=== PATIENT | female | born 1975 | race Caucasian/White ===

== ENCOUNTER 2024-05-01 08:16 | Observation (INO) ==
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
[2024-05-01 09:07] LABS: Basophils # (auto) 0.03 K/uL (0.00-0.20); Basophils % (auto) 0.5 %; Eosinophils # (auto) 0.22 K/uL (0.00-0.50); Eosinophils % (auto) 3.4 %; Hematocrit (blood only) 44.5 % (37.0-47.0); Hemoglobin 14.8 g/dl (12.0-16.0); Immature Granulocytes # (auto) 0.03 K/uL (0.01-0.20); Immature Granulocytes % (auto) 0.5 %; Lymphocytes # (auto) 1.14 K/uL (1.20-3.40); Lymphocytes % (auto) 17.7 %; Mean Corpuscular Hgb Conc 33.3 g/dL (32.0-36.0); Mean Corpuscular Volume 90.3 fL (80.0-100.0); Mean Platelet Volume 11.4 fL (9.4-12.4); Monocytes # (auto) 0.61 K/uL (0.11-0.59); Monocytes % (auto) 9.5 %; Neutrophils # (auto) 4.41 K/uL (1.40-6.50); Neutrophils % (auto) 68.4 %; Platelet Count 221 K/uL (130-400); RDW Coefficient of Variation 12.3 % (11.5-14.5); RDW Standard Deviation 40.8 fL (36.4-46.3); Red Blood Count 4.93 M/uL (4.20-5.40); White Blood Count 6.44 K/ul (4.8-10.8)
[2024-05-01 09:24] LABS: Alanine Aminotransferase 18 U/L (7-52); Albumin Globulin Ratio 1.3 (0.9-2); Albumin Level 4.2 gm/dl (3.4-5.0); Alkaline Phosphatase 70 U/L (34-104); Anion Gap 7 (3-11); Aspartate Aminotransferase 21 U/L (13-39); BUN Creatinine Ratio 9.4 (10-20); Bilirubin,Total 0.5 mg/dl (0.2-1.0); Blood Urea Nitrogen 9 mg/dl (6-23); C Reactive Protein < 0.50 mg/dl (0-0.5); Calcium 9.1 mg/dl (8.6-10.3); Carbon Dioxide 27 mmol/L (21-32); Chloride 102 mmol/L (98-107); Globulin 3.2 gm/dl (2.5-4.0); Glucose 97 mg/dl (70-99(Fasting)); Potassium 4.1 mmol/L (3.5-5.1); Sodium 136 mmol/L (136-145); Total Protein 7.4 gm/dl (6.0-8.3)
[2024-05-01 09:33] LABS: INR 0.9 (0.9-1.1); Prothrombin Time 10.3 Seconds (9.0-12.0)
--- NOTE | 2024-05-01 09:34 | Ultrasound Report ---
US venous doppler LE RT CLINICAL HISTORY: R posterior calf swelling and redness TECHNIQUE: Right lower extremity real-time compression venous ultrasound with Color Doppler imaging. Utilizing real-time ultrasonic imaging multiple real time high-resolution ultrasonic images with comp ression and noncompression maneuvers of the deep venous system in addition to color doppler imaging w ere performed from the common femoral vein through the proximal calf veins. COMPARISON: None available at the time of this dictation. FINDINGS/IMPRESSION: No deep venous thrombus, there is normal compressibility of the deep venous system from the common fe moral vein through the proximal calf veins. No definite fluid collection is seen. ACT 112: Negative or not required by law. Electronically signed by: Guido Goodwin M.D. 05/01/2024 9:33 AM
[2024-05-01] MEDS: CEFEPIME 2000MG 2,000 MG/20 ML SYR IV STA (10:10)
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
[2024-05-01] MEDS: OPTIRAY 320 100ml IV ONE (11:10)
--- NOTE | 2024-05-01 11:31 | Electrocardiogram Report ---
Test Reason : Blood Pressure : */* mmHG Vent. Rate : 69 BPM Atrial Rate : 69 BPM P-R Int : 148 ms QRS Dur : 86 ms QT Int : 412 ms P-R-T Axes : 66 75 40 degrees QTcB Int : 441 ms Normal sinus rhythm Normal ECG Confirmed by Anthony Chun ([id number]) on 05/01/2024 11:31:19 AM Referred By: Jaleesa Saenz Confirmed By: Anthony Chun
--- NOTE | 2024-05-01 11:55 | CT Scan Report ---
CT knee RT w con HISTORY: 48 years-old Female Spider bite; post. knee; spreading erythema COMPARISON: Duplex venous Doppler study of same day. TECHNIQUE: Multiple axial CT images of the right knee were obtained with IV contrast. A dose lowering technique was used consistent with the principals of MIRNA. FINDINGS: Five mm ossification is noted posterior to the proximal tibial metaphysis on image 247 series 4, whic h appears benign. Mild tricompartmental osteoarthritis without acute fracture, dislocation or osseous erosion. Benign 4 mm bone island of the lateral proximal tibia. Subcortical cysts of the trochlear m easure up to 6 mm. Mild nonspecific anterior subcutaneous edema. No fluid collections or large joint effusion. No defini te Enriquez's cyst. Tendons,, ligaments and menisci are not well-evaluated by CT technique. Normal appea isidro of the popliteal artery. No lymphadenopathy. IMPRESSION: 1. No osseous abnormality. 2. Mild osteoarthritis is most pronounced within the patellofemoral joint. 3. Mild nonspecific anterior subcutaneous edema. No fluid collections. ACT 112: Negative or not required by law. The above report was generated using voice recognition software. It may contain grammatical, syntax o r spelling errors. Dictated: 05/01/2024 11:41 AM Transcribed: 05/01/2024 11:53 AM Phillip [id number] [email or web address] Electronically signed by: Rl Hussein M.D. 05/01/2024 11:54 AM
[2024-05-01] MEDS ORDERED: ACETAMINOPHEN 325 MG TAB PO PRN (13:42)
[2024-05-01] MEDS ORDERED: MELATONIN 3 MG TAB PO PRN (13:42)
[2024-05-01] MEDS ORDERED: POLYETHYLENE (MIRALAX) 17 GM PACK PO PRN (13:42)
[2024-05-01 14:11] LABS: Lyme Screen Rflx Confirmation Positive (Negative)
[2024-05-01 14:45] LABS: Lyme Ab IgG 2nd Tier Confirm Positive (Negative); Lyme Ab IgM 2nd Tier Confirm Positive (Negative)
[2024-05-01] MEDS: cefTRIAXone SODIUM 2,000 MG/50 ML BAG IV SCH (16:18)
[2024-05-01] MEDS: metroNIDAZOLE 500 MG TAB PO SCH (16:19)
[2024-05-01] MEDS: DOXYCYCLINE HYCLATE 100 MG CAP PO SCH (16:19)
[2024-05-01 19:03] VITALS: O2SAT 98
[2024-05-02 07:16] VITALS: BP 116/74; PULSE 65; RESP 18; TEMP 97.9
[2024-05-02] MEDS: ONDANSETRON INJ 2 MG/ML 2 ML VIAL IV PRN (08:27)
--- NOTE | 2024-05-02 11:34 | Ultrasound Report ---
ULTRASOUND LEFT LOWER EXTREMITY NONVASCULAR CLINICAL HISTORY: Right leg swelling. Assess for abscess. Reported history of spider bite. COMPARISON STUDY: CT scan of the right knee dated 05/01/2024. FINDINGS: Real-time noguera scale and color flow sonography of the soft tissues of the posterior proxima l right upper extremity is performed at the indicated site of interest. No fluid collection is seen t o suggest abscess. No mass lesion is identified. There is no abnormal hyperemia on color imaging. IMPRESSION: No acute abnormality is identified at the site of interest. Dictated: 05/02/2024 9:44 AM Transcribed: 05/02/2024 10:23 AM Phillip [id number] [email or web address] Electronically signed by: Tacho Dan M.D. 05/02/2024 11:33 AM
--- NOTE | 2024-05-03 08:14 | Discharge Summary ---
Discharge Summary Date of Service May 02, 2024 Principal Dx & Hospital Course #1 = Principal Diagnosis (1) Cellulitis of right le-year-old F with insignificant PMHx presenting for 11 days of ongoing symptoms secondary to likely a spider bite. Trialed on antibiotics of Keflex, Bactrim and cefuroxime. Continuing to have spreading erythema and edema, with ongoing pain. Pt does have her child's [employer] graduation to go to on out of state; hopeful to d/c tomorrow if symptoms improve; will transition to po antibiotics at d/c if improving. - Admit observation - Imaging provided by the patient of the wounds course reveals initial central ulceration, with blistering. Erythema continues to spread, as marked by pen (04/30). Presentation consistent with local envenomation; spider etiology likely. No systemic symptoms. - CBC, CMP, PT/INR all grossly WNL; CRP WNL - Ultrasound RLE- no DVT or fluid collection - - Start ceftriaxone 2 g IV daily, Flagyl 500 mg p.o. daily, doxycycline 100 mg p.o. twice daily as patient was not improving with outpatient regimen. No abscess or fluid collection noted. No insect was seen when bite occurred Lyme screen was positive. Discussed with ID as a curbside, will treat with doxycycline for 14 days for lyme and cephalosporin for strep coverage for 7 days. recommend followup in about 1 week to ensure improvement. Plan = Admission HPI Per Admitting Provider 48-year-old female presenting for wound to posterior knee which she believes is a bite from an insect. Reports ongoing pain following 3 courses of antibiotics (Keflex, doxycycline, cefuroxime), with spreading erythema from site of bite. ED course: CBC grossly WNL, PT/INR WNL, CMP grossly WNL; venous Doppler of RLE without DVT or fluid collection. Provided with 2 g cefepime in the ED. Hemodynamically stable. Patient is a 48-year-old F w/ PMHx of orthopedic procedures involving left knee and s/p lumpectomy right breast presenting for worsening symptoms regarding recent bite to right lower extremity. Reports that on 04/21 she awoke after having pain to the RLE, in the popliteal space. States that she asked her to look at the area, and it was noted to have a blistering/vesicular appearance. Reports the pain at that time was squeezing in nature. Went to ED and was prescribed Keflex, and took 2 doses of Benadryl. After worsening of the symptoms and appearance of the bite, she went to her PCP on 04/24 and was started on Bactrim. Continued to not have improvement, on return to PCP 04/30 when cefuroxime was added to Bactrim. PCP at the time had marked the extent of erythema with a sharpie, and was told the patient that she was to go to the ED if the erythema spread or pain worsen. Patient reports that this erythema continued to spread. Reports that the pain is constant, however has improved very slightly. Continues to describe the sensation as squeezing/pressure around the area of bite spreading up and down the posterior R leg. Does report some numbness/tingling in the area of the bite. Some abdominal discomfort since starting antibiotics. Otherwise, denies fever/chills, nausea/vomiting/diarrhea/constipation, chest pain, shortness of breath, palpitations. Did not locate an insect following this initial presentation to include a spider. No known tick exposures, however did complete triathlon days before this occurred. History of Lyme disease. Please see Dr. Corral's attestation for adjustment/additions to treatment plan. Discharge Exam General: No acute distress, well developed. Skin: Warm and dry, without rashes or lesions in locations other than bite. RLE with 3-4cm oval shaped lesion just below popliteal space, no longer showing surronding erythema. Head: Normocephalic, atraumatic Eyes: PERRL, conjunctivae clear, sclera non-icteric ENT: External ear and ear canal without swelling; nose atraumatic; good dentition Neck: Supple, no LAD; no JVD Cardio: RRR, no M/G/R, S1 and S2 normal Resp: Chest wall symmetric, normal respiratory effort; No respiratory distress, Lungs CTA in all lobes bilaterally, no wheezes, rales, or rhonchi Abdomen: Soft, symmetric, nontender; No visible lesions or scars; no distention; No masses or hepatosplenomegaly MSK: No deformities, strength equal and symmetric; sensation normal to UE/LE; Pulses palpable and equal; No edema. Neuro: Awake, alert Psych: Appropriate mood and affect; good judgement and insight Discharge Plan Discharge Items Patient Disposition: Home - Self-Care Reason For Visit: BITE POSTERIOR RLE Discharge Diagnosis: posterior bite/ RLE Activity: Resume your previous activity Non-emergency contact: Primary Care Provider Call non-emergency contact if: you have any medication questions Follow-up/Referrals: Jaleesa Saenz CRNP [Primary Care Provider] - 05/09/24 10:00 am Diet: Regular Addtl Attending Provider Instructions: Given that your LYme screen was positive: We will treat for 14 days of doxycycline. (13 more days) We will add cefadroxil for 7 days. Both antibiotics will start tonight. I will recommend followup with your PCP in about 1 week. Pending Studies at Discharge: No Stand-Alone Forms: [facility] [employer], Smoking Cessation Medications and DC Order Prescriptions: New doxycycline hyclate 100 mg Capsule 100 mg PO BID 13 Days Qty: 26 0RF Rx Instructions: Next dose tonight around 9pm. cefadroxil 500 mg capsule 500 mg PO BID Qty: 14 0RF Rx Instructions: First dose tonight. Discontinued cefuroxime axetil 500 mg tablet 500 mg PO Q12H Qty: 10 0RF sulfamethoxazole-trimethoprim 800-160 mg tablet 1 tab PO BID 7 Days Qty: 14 0RF Discharge Orders: Discharge Order (Routine); Ordered 05/02/24 Ordered By: Ralf Bates Admission Data Admit Date/Time: 05/01/24 11:20 Attending Provider: Ralf Bates Admit Provider: Esequiel Corral Primary Care Provider: Jaleesa Saenz Other Providers: Esequiel Corral Other Interventions: Discharge Summary Assessment (RN) Last Done: 05/02/24 10:55 Hospital Stay Data Consultations 05/01/24 10:17 ED Decision to Admit Stat Diagnostic Imagining Performed 05/01/24 08:41 US leg [US venous doppler LE RT] Stat 05/01/24 10:46 CT knee RT w con Urgent 05/02/24 08:01 US leg [US extremity non-vascular ltd] Urgent Pending Results Patient Have Any Pending Studies at Discharge: No Discharge Instructions Given to Patient (Per Discharging Provider) Given that your LYme screen was positive: We will treat for 14 days of doxycycline. (13 more days) We will add cefadroxil for 7 days. Both antibiotics will start tonight. I will recommend followup with your PCP in about 1 week. Total Time Total Time Spent Total Time Spent (In Minutes): 32 Coding Level of Care Code 25689 INP/OBS DISCH >30 MIN Diagnoses Cellulitis of right leg L03.115
== END 2024-05-02 11:10 | disposition home or self-care (01) ==
LOC: 3N 08:16 → ED 08:16 → SUATTDRO 11:20 → 3N 12:48